=== PATIENT | female | born 1985 | race Asian ===

== ENCOUNTER 2022-01-09 19:24 | Emergency (ER) | payer SELFPAY ==
[2022-01-09] MEDS ORDERED: DIAZEPAM 5 MG TABLET ONE (21:52)
[2022-01-09] MEDS ORDERED: KETOROLAC 30 MG/ML INJ ONE (21:53)
[2022-01-09] MEDS ORDERED: MORPHINE 4 MG/ML SYR ONE (21:53)
[2022-01-09] MEDS ORDERED: dexAMETHasone 10 MG/ML VIAL ONE (21:53)
[2022-01-09] MEDS ORDERED: ONDANSETRON 4 MG/2 ML VIAL ONE (21:53)
[2022-01-09] MEDS ORDERED: NA CHLORIDE 0.9% 1,000 ML ONE (21:53)
[2022-01-09 21:57] LABS: Absolute Lymphocytes (CBC) 1.4 K/uL (0.7-4.9); Hematocrit 42.9 % (36.0-45.0); Lymphocytes % 22.1 % (15.3-44.8); MCV 90.5 fL (80-100); MPV 7.7 fL (7.6-11.3); RBC Red Blood Cell Count 4.74 M/uL (3.86-4.86)
[2022-01-09 22:03] LABS: Urine Blood Negative (Negative); Urine Glucose Negative (Negative); Urine Protein Negative (Negative); Urine Specific Gravity 1.015 (1.005-1.030); Urine pH 7.5 (5.0-7.0)
[2022-01-09 22:09] LABS: Urine Specific Gravity/Preg 1.015 (1.005-1.030)
[2022-01-09 22:13] LABS: Albumin 3.9 g/dL (3.4-5.0); Bilirubin Total 0.4 mg/dL (0.2-1.0); Potassium 3.8 mmol/L (3.5-5.1); Protein, Total 7.9 g/dL (6.4-8.2)
--- NOTE | 2022-01-09 23:13 | RAD REPORT ---
EXAM DESCRIPTION: CTSpine Lumbar Wo Con01/09/2022 10:39 pm CLINICAL HISTORY: Radiculopathy COMPARISON: None TECHNIQUE: Computed axial tomography lumbar spine was obtained with coronal and sagittal reconstruct ion. All CT scans are performed using dose optimization technique as appropriate and may include automated exposure control or mA/KV adjustment according to patient size. FINDINGS: No fracture noted. No dislocation. Small disc bulge L4-5 A significant central/foraminal stenosis is not noted. IMPRESSION: No significant abnormality is displayed. If the patient continues to have symptoms to lara ggest spinal canal/neural foramina pathology then MRI would recommended
--- NOTE | 2022-01-09 23:18 | RAD REPORT ---
EXAM DESCRIPTION: RAD - Pelvis - 01/09/2022 11:01 pm CLINICAL HISTORY: Pelvic pain FINDINGS: No fracture or dislocation is seen. Mild osteoarthritis involves the hips mainly consisting of mild joint space narrowing and subchondral sclerosis
--- NOTE | 2022-01-09 23:19 | RAD REPORT ---
EXAM DESCRIPTION: RAD - Hip Right 2 View - 01/09/2022 11:01 pm CLINICAL HISTORY: Right hip pain FINDINGS: No fracture or dislocation is seen. Mild osteoarthritis involves the right hip mainly consisting of mild joint space narrowing and subcho ndral sclerosis
--- NOTE | 2022-01-09 23:49 | EDPHYS ---
Physician Documentation [facility] Name: Jennifer Swanson Age: 36 yrs Sex: Female : 1985 Arrival Date: 01/09/2022 Time: 19:27 Bed 2 Private MD: GRISELDA Physician Navdeep Srinivasan HPI: 01/09 21:45 This 36 yrs old Female presents to ER via Ambulatory with complaints of Leg Pain, donal Numbness of leg. 21:45 The patient presents with decreased range of motion, pain, that is acute. The donal complaints affect the right gluteal fold and right inner thigh. Context: The problem was sustained at an unknown site. Onset: The symptoms/episode began/occurred acutely, 4 day(s) ago. Modifying factors: The symptoms are alleviated by nothing. the symptoms are aggravated by nothing. Associated signs and symptoms: The patient has no apparent associated signs or symptoms. Severity of symptoms: At their worst the symptoms were mild, in the emergency department the symptoms are unchanged. The patient has not experienced similar symptoms in the past. Historical: - Allergies: 19:55 No Known Allergies; tw5 - Home Meds: 19:54 None [Active]; tw5 - PMHx: 19:54 None; tw5 - PSHx: 19:54 None; tw5 - Immunization history:: Flu vaccine is not up to date. - Social history:: Smoking status: Patient denies any tobacco usage or history of. - Family history:: not pertinent. ROS: 21:45 Constitutional: Negative for fever, chills, and weight loss, Eyes: Negative for injury, donal pain, redness, and discharge, ENT: Negative for injury, pain, and discharge, Neck: Negative for injury, pain, and swelling, Cardiovascular: Negative for chest pain, palpitations, and edema, Respiratory: Negative for shortness of breath, cough, wheezing, and pleuritic chest pain, Abdomen/GI: Negative for abdominal pain, nausea, vomiting, diarrhea, and constipation, : Negative for injury, bleeding, discharge, and swelling, Skin: Negative for injury, rash, and discoloration, Neuro: Negative for headache, weakness, numbness, tingling, and seizure, Psych: Negative for depression, anxiety, suicide ideation, homicidal ideation, and hallucinations, Allergy/Immunology: Negative for hives, rash, and allergies, Endocrine: Negative for neck swelling, polydipsia, polyuria, polyphagia, and marked weight changes, Hematologic/Lymphatic: Negative for swollen nodes, abnormal bleeding, and unusual bruising. 21:45 Back: Positive for decreased range of motion, pain at rest, pain with movement, radiated pain, of the right low back. Exam: 21:45 Constitutional: This is a well developed, well nourished patient who is awake, alert, donal and in no acute distress. Head/Face: Normocephalic, atraumatic. Eyes: Pupils equal round and reactive to light, extra-ocular motions intact. Lids and lashes normal. Conjunctiva and sclera are non-icteric and not injected. Cornea within normal limits. Periorbital areas with no swelling, redness, or edema. ENT: Nares patent. No nasal discharge, no septal abnormalities noted. Tympanic membranes are normal and external auditory canals are clear. Oropharynx with no redness, swelling, or masses, exudates, or evidence of obstruction, uvula midline. Mucous membranes moist. Neck: Trachea midline, no thyromegaly or masses palpated, and no cervical lymphadenopathy. Supple, full range of motion without nuchal rigidity, or vertebral point tenderness. No Meningismus. Chest/axilla: Normal chest wall appearance and motion. Nontender with no deformity. No lesions are appreciated. Cardiovascular: Regular rate and rhythm with a normal S1 and S2. No gallops, murmurs, or rubs. Normal PMI, no JVD. No pulse deficits. Respiratory: Lungs have equal breath sounds bilaterally, clear to auscultation and percussion. No rales, rhonchi or wheezes noted. No increased work of breathing, no retractions or nasal flaring. Abdomen/GI: Soft, non-tender, with normal bowel sounds. No distension or tympany. No guarding or rebound. No evidence of tenderness throughout. Back: No spinal tenderness. No costovertebral tenderness. Full range of motion. Skin: Warm, dry with normal turgor. Normal color with no rashes, no lesions, and no evidence of cellulitis. Neuro: Awake and alert, GCS 15, oriented to person, place, time, and situation. Cranial nerves II-XII grossly intact. Motor strength 5/5 in all extremities. Sensory grossly intact. Cerebellar exam normal. Normal gait. Psych: Awake, alert, with orientation to person, place and time. Behavior, mood, and affect are within normal limits. 21:45 Musculoskeletal/extremity: Extremities: grossly normal except: decreased ROM, pain, ROM: limited active range of motion due to pain, limited passive range of motion due to pain, Circulation is intact in all extremities. Sensation intact. Compartment Syndrome exam of affected extremity: is normal. Weight bearing: able to fully bear weight, DVT Exam: no swelling, negative Homans' sign noted on exam, no appreciated bluish discoloration, no erythema, no increased warmth, pain, tenderness. Vital Signs: 19:53 BP 106 / 71; Pulse 82; Resp 18; Temp 98.6; Pulse Ox 97% on R/A; Weight 58.97 kg; Height tw5 5 ft. 2 in. (157.48 cm); Pain 8/10; 19:53 Body Mass Index 23.78 (58.97 kg, 157.48 cm) tw5 MDM: 20:40 Patient medically screened. [facility] 21:50 Differential diagnosis: contusion, tendonitis. Data reviewed: vital signs, nurses [facility] notes, lab test result(s), radiologic studies, CT scan, plain films. Data interpreted: engine monitor: rate is 82 beats/min, rhythm is regular, Pulse oximetry: on room air is 97 %. 01/09 21:15 Order name: CBC with Diff; Complete Time: 23:47 [facility] 01/09 21:15 Order name: Comprehensive Metabolic Panel; Complete Time: 23:47 [facility] 01/09 21:15 Order name: Pelvis XRAY; Complete Time: 23:47 [facility] 01/09 21:15 Order name: Hip Right 2 View XRAY; Complete Time: 23:47 [facility] 01/09 22:02 Order name: Urine --Ancillary (enter results); Complete Time: 23:47 mw2 01/09 22:03 Order name: Urine Dipstick-Ancillary; Complete Time: 23:47 EDMS 01/09 21:15 Order name: CT Lumbar Spine Wo Con; Complete Time: 23:47 [facility] 01/09 21:15 Order name: Urine Dipstick-Ancillary (obtain specimen); Complete Time: 22:02 [facility] 01/09 21:15 Order name: Urine Test (obtain specimen); Complete Time: 22:02 [facility] Administered Medications: 21:45 Drug: NS 0.9% 1000 ml Route: IV; Rate: 1 bolus; Site: left antecubital; kl 01/10 00:00 Follow up: Response: No adverse reaction; IV Status: Infusion continued; IV Intake: ll3 1000ml 01/09 21:45 Drug: morphine 4 mg Route: IVP; Infused Over: 4 mins; Site: left antecubital; kl 23:22 Follow up: Response: Marked relief of symptoms kl 22:00 Drug: Ketorolac 30 mg Route: IVP; Site: left antecubital; kl 23:23 Follow up: Response: Marked relief of symptoms kl 22:00 Drug: Valium (diazepam) 10 mg Route: PO; kl 23:23 Follow up: Response: Marked relief of symptoms kl 22:08 Drug: Decadron - Dexamethasone 10 mg Route: IVP; Site: left antecubital; kl 23:23 Follow up: Response: Marked relief of symptoms kl 22:15 Drug: Zofran (Ondansetron) 4 mg Route: IVP; Site: left antecubital; kl 23:22 Follow up: Response: Marked relief of symptoms kl Disposition Summary: 01/09/22 23:48 Discharge Ordered Location: Home donal Problem: new donal Symptoms: have improved donal Condition: Stable donal Diagnosis - Sciatica, right side donal - Osteoarthritis of hip, unspecified donal - Osteoarthritis, unspecified site donal Followup: donal - With: Private Physician - When: 2 - 3 days - Reason: Recheck today's complaints, Continuance of care, Re-evaluation by your physician Followup: donal - With: Martín Ratliff MD - When: 2 - 3 days - Reason: Recheck today's complaints, Re-evaluation by your physician Discharge Instructions: - Discharge Summary Sheet donal - Arthritis donal - Sciatica donal - Sciatica, [id number] donal - Radicular Pain donal - Osteoarthritis donal Forms: - Medication Reconciliation Form donal - Thank You Letter donal - Antibiotic Education donal - Prescription Opioid Use donal Prescriptions: - dexamethasone 2 mg Oral tablet - take 1 tablet by ORAL route 2 times per day; 12 tablet; Refills: 0, Product donal Selection Permitted - Diclofenac Sodium 75 mg Oral tablet,delayed release (DR/EC) - take 1 tablet by ORAL route 2 times per day; 20 tablet; Refills: 0, Product donal Selection Permitted - Cyclobenzaprine 5 mg Oral Tablet - take 1 tablet by ORAL route 3 times per day As needed; 15 tablet; Refills: 0, [facility] Product Selection Permitted - Tylenol-Codeine #3 300 mg-30 mg Oral - take 2 tablet by ORAL route every 6 hours; 24 tablet; Refills: 0, Product donal Selection Permitted Signatures: Dispatcher [employer] Yvonne Galaviz RN RN Navdeep Ortiz MD MD cha Wood, Tiffany tw5 Margarita Quiroz RN ll3
--- NOTE | 2022-01-09 23:49 | ER ---
Nurse's Notes [facility] Name: Jennifer Swanson Age: 36 yrs Sex: Female : 1985 Arrival Date: 01/09/2022 Time: 19:27 Bed 2 Private MD: Diagnosis: Sciatica, right side;Osteoarthritis of hip, unspecified;Osteoarthritis, unspecified site Presentation: 01/09 19:53 Chief complaint: Patient states: "It is really painful I have a pain the is going down tw5 the back of my leg. It started Tuesday and it has been getting progressively worse.". Coronavirus screen: Vaccine status: Patient reports being unvaccinated. Ebola Screen: Patient negative for fever greater than or equal to 101.5 degrees Fahrenheit, and additional compatible Ebola Virus Disease symptoms Patient denies exposure to infectious person. Patient denies travel to an Ebola-affected area in the 21 days before illness onset. Initial Sepsis Screen: Does the patient meet any 2 criteria? No. Patient's initial sepsis screen is negative. Does the patient have a suspected source of infection? No. Patient's initial sepsis screen is negative. Risk Assessment: Do you want to hurt yourself or someone else? Patient reports no desire to harm self or others. Onset of symptoms was January 06, 2022. 19:53 Method Of Arrival: Ambulatory tw5 19:53 Acuity: ALOK 3 tw5 Triage Assessment: 19:55 General: Appears uncomfortable, Behavior is calm, cooperative, appropriate for age. tw5 Pain: Pain currently is 3 out of 10 on a pain scale. Historical: - Allergies: 19:55 No Known Allergies; tw5 - Home Meds: 19:54 None [Active]; tw5 - PMHx: 19:54 None; tw5 - PSHx: 19:54 None; tw5 - Immunization history:: Flu vaccine is not up to date. - Social history:: Smoking status: Patient denies any tobacco usage or history of. - Family history:: not pertinent. Screenin:59 Abuse screen: Denies threats or abuse. Denies injuries from another. Nutritional ll3 screening: No deficits noted. Tuberculosis screening: No symptoms or risk factors identified. Fall Risk None identified. Vital Signs: 19:53 BP 106 / 71; Pulse 82; Resp 18; Temp 98.6; Pulse Ox 97% on R/A; Weight 58.97 kg; Height tw5 5 ft. 2 in. (157.48 cm); Pain 8/10; 19:53 Body Mass Index 23.78 (58.97 kg, 157.48 cm) tw5 ED Course: 19:27 Patient arrived in ED. bp1 19:54 Triage completed. tw5 19:55 Arm band placed on. tw5 20:38 Navdeep Srinivasan MD is Attending Physician. donal 21:46 Inserted saline lock: 20 gauge in left antecubital area, using aseptic technique. Blood zm collected. 21:47 CBC with Diff Sent. zm 21:47 Comprehensive Metabolic Panel Sent. zm 22:39 CT Lumbar Spine Wo Con In Process Unspecified. EDMS 23:03 Pelvis XRAY In Process Unspecified. EDMS 23:03 Hip Right 2 View XRAY In Process Unspecified. EDMS 23:49 Martín Ratliff MD is Referral Physician. [facility] 23:55 Eladio Montes RN is Primary Nurse. as6 23:59 Patient has correct armband on for positive identification. Bed in low position. Call ll3 light in reach. Side rails up X 1. Adult w/ patient. 23:59 No provider procedures requiring assistance completed. IV discontinued, intact, ll3 bleeding controlled, No redness/swelling at site. Pressure dressing applied. Administered Medications: 21:45 Drug: NS 0.9% 1000 ml Route: IV; Rate: 1 bolus; Site: left antecubital; 01/10 00:00 Follow up: Response: No adverse reaction; IV Status: Infusion continued; IV Intake: ll3 1000ml 01/09 21:45 Drug: morphine 4 mg Route: IVP; Infused Over: 4 mins; Site: left antecubital; kl 23:22 Follow up: Response: Marked relief of symptoms kl 22:00 Drug: Ketorolac 30 mg Route: IVP; Site: left antecubital; kl 23:23 Follow up: Response: Marked relief of symptoms kl 22:00 Drug: Valium (diazepam) 10 mg Route: PO; kl 23:23 Follow up: Response: Marked relief of symptoms kl 22:08 Drug: Decadron - Dexamethasone 10 mg Route: IVP; Site: left antecubital; kl 23:23 Follow up: Response: Marked relief of symptoms kl 22:15 Drug: Zofran (Ondansetron) 4 mg Route: IVP; Site: left antecubital; kl 23:22 Follow up: Response: Marked relief of symptoms Medication: 01/10 00:00 VIS not applicable for this client. ll3 Intake: 00:00 IV: 1000ml; Total: 1000ml. ll3 Outcome: 01/09 23:48 Discharge ordered by . donal 23:59 Discharged to home ambulatory, with significant other. 3 23:59 Condition: stable 23:59 Discharge instructions given to patient, significant other, Instructed on discharge instructions, follow up and referral plans. medication usage, Demonstrated understanding of instructions, follow-up care, medications, Prescriptions given X 4. 01/10 00:01 Patient left the ED. ll3 Signatures: Dispatcher [employer] EDMS Yvonne Gutierres, RN Navdeep Araiza MD MD cha Paniauga, Brittany bp1 Wood, Tiffany tw5 Eladio Montes RN RN as6 Margarita Quiroz RN RN ll3 Guadalupe Milan
[2022-01-11 10:49] VITALS: BP 106/71; TEMP 98.6; O2SAT 97
== END 2022-01-10 00:01 | disposition home or self-care (01) ==
LOC: ER 19:24
DX: M54.31 Sciatica, right side (principal); M16.11 Unilateral primary osteoarthritis, right hip
CPT/HCPCS: 36415; 72131; 72170; 80053; 81003; 81025; 85025; 96361; 96374; 96375; 99284; J1100; J2405; J7030